=== PATIENT | female | born 1955 | race African-American/Black ===

== ENCOUNTER 2017-04-25 08:20 | Inpatient (IN) | payer MEDICARE, MEDICAID ==
[~2017-04-25] VITALS: Ht 177.8 cm; Wt 79.4 kg
[2017-04-25] MEDS ORDERED: ONDANSETRON HCL 4MG/2ML VIAL IV STA (09:00)
[2017-04-25] MEDS ORDERED: SODIUM CHLORIDE 0.9% 1,000 ML IV ONE (09:00)
[2017-04-25] MEDS ORDERED: MORPHINE SULFATE 4 MG/ML CPJ (NOT FOR IM USE) IV STA (09:00)
[2017-04-25] MEDS ORDERED: FAMOTIDINE 20MG/2ML VIAL IV STA (09:00)
[2017-04-25 09:45] LABS: HEMATOCRIT. 36.6 % (36.0-48.0); HEMOGLOBIN. 11.4 g/dL (12.0-16.0); MEAN CORPUSCULAR HEMOGLOBIN 25.1 pg (28.0-32.0); MEAN CORPUSCULAR VOLUME 80.4 fL (81.0-99.0); MEAN PLATELET VOLUME 8.5 fl (7.4-10.4); PLATELET 441 x1000/uL (130-400); RED BLOOD CELL COUNT 4.54 mill/uL (4.2-5.4); RED CELL DISTRIBUTION WIDTH 19.3 % (11.6-14.6)
[2017-04-25 09:51] LABS: PROTHROMBIN TIME 10.8 sec (9.4-11.6)
[2017-04-25 09:55] LABS: CARBON DIOXIDE 24 mEq/L (21-32); CHLORIDE 109 mEq/L (98-107)
[2017-04-25 10:01] LABS: TROPONIN I 0.02 ng/mL (0.00-0.04)
[2017-04-25 11:12] LABS: PLATELET ESTIMATE INCREASED
[2017-04-25] MEDS ORDERED: IOHEXOL-300 100 ML BOTTLE ONE (11:48)
[2017-04-25 13:24] LABS: CLARITY URINE CLEAR (CLEAR); COLOR URINE YELLOW (YELLOW); KETONES URINE 1+ (NEGATIVE); LEUKOCYTE ESTERASE URINE NEGATIVE (NEGATIVE); NITRITE URINE NEGATIVE (NEGATIVE); OCCULT BLOOD URINE 2+ (NEGATIVE); PH URINE 5.5 (4.5-8.0); PROTEIN URINE 3+ (NEGATIVE); SPECIFIC GRAVITY URINE 1.028 (1.005-1.030); UROBILINOGEN URINE 0.2 E.U./dL (0.2-1.0)
[2017-04-25] MEDS ORDERED: ONDANSETRON HCL 4MG/2ML VIAL IV ONE (13:45)
[2017-04-25] MEDS ORDERED: ENALAPRIL 0.625 MG in DEXTROSE 5% WATER 49.5 ML IV ONE (13:45)
[2017-04-25] MEDS ORDERED: ENALAPRIL 2.5MG/2ML VIAL 2ML IV NR (14:15)
[2017-04-25] MEDS ORDERED: ENALAPRIL 2.5MG/2ML VIAL 2ML IV ONE (14:15)
[2017-04-25] MEDS ORDERED: SODIUM CHLORIDE 0.45% 1,000 ML IV SCH (15:44)
[2017-04-25] MEDS ORDERED: CLONIDINE 0.1MG TABLET PO PRN (15:45)
[2017-04-25] MEDS ORDERED: MORPHINE SULFATE 2 MG/ML CPJ (NOT FOR IM USE) IV PRN (15:45)
[2017-04-25] MEDS ORDERED: ONDANSETRON HCL 4MG/2ML VIAL IV PRN (15:45)
[2017-04-25 16:00] VITALS: BP 178/84
[2017-04-25] MEDS ORDERED: ENAL5TAB PO (16:40)
[2017-04-25] MEDS ORDERED: METF10002 PO (16:40)
[2017-04-25 16:43] VITALS: BP 178/84
[2017-04-25] MEDS ORDERED: AMLO10TA80 PO (16:43)
[2017-04-25] MEDS ORDERED: DEXTROSE 50% WATER 50ML SYRINGE IV PRN (18:15)
[2017-04-25] MEDS: BLOOD SUGAR DIAGNOSTIC STRIP TEST SCH ×2 (18:36→21:44)
[2017-04-25] MEDS ORDERED: LEVO25TA7 PO (18:54)
[2017-04-25] MEDS ORDERED: TOFA5TAB PO (18:54)
[2017-04-25] MEDS ORDERED: INSU100I19 SQ (18:57)
[2017-04-25] MEDS: INSULIN LISPRO 100 UNITS/ML SUBCUT SCH ×2 (19:00→22:38)
[2017-04-25 20:00] VITALS: BP 131/72
[2017-04-25] MEDS ORDERED: INFLUENZA VIRUS VACCINE 0.5ML SYR IM ONE (21:45)
[2017-04-26] VITALS: BP 127/70
[2017-04-26 04:00] VITALS: BP 113/63
[2017-04-26] MEDS: BLOOD SUGAR DIAGNOSTIC STRIP TEST SCH ×2 (06:40→11:45)
[2017-04-26] MEDS: INSULIN LISPRO 100 UNITS/ML SUBCUT SCH (07:01)
[2017-04-26 08:00] VITALS: BP 129/62
[2017-04-26 09:14] LABS: BASOPHILS % 0.5 % (0.0-2.0); EOSINOPHILS % 4.8 % (0.0-5.0); LYMPHOCYTES % 24.8 % (20.0-50.0); MEAN CORPUSCULAR VOLUME 80.2 fL (81.0-99.0); MEAN PLATELET VOLUME 8.8 fl (7.4-10.4); MONOCYTES % 10.3 % (2.0-8.0); NEUTROPHILS % 59.6 % (40.0-76.0); PLATELET 364 x1000/uL (130-400); RED BLOOD CELL COUNT 3.87 mill/uL (4.2-5.4); RED CELL DISTRIBUTION WIDTH 19.4 % (11.6-14.6)
[2017-04-26 09:49] LABS: CARBON DIOXIDE 22 mEq/L (21-32); CHLORIDE 112 mEq/L (98-107)
[2017-04-26 11:55] VITALS: BP 129/62
[2017-04-26 12:00] VITALS: BP 149/83
== END 2017-04-26 12:45 | disposition home or self-care (01) | DRG 866 ==
LOC: ER 08:26 → CANBEDREQ 12:13 → 5WST 13:42 → ENRESERV 14:10 → SUPCPDRO 15:38
PROVIDERS: ADMIT Hospitalist; ATTEND Hospitalist
DX: B34.9 Viral infection, unspecified (principal); E11.9 Type 2 diabetes mellitus without complications; R10.30 Lower abdominal pain, unspecified; E78.00 Pure hypercholesterolemia, unspecified; E78.5 Hyperlipidemia, unspecified; F17.200 Nicotine dependence, unspecified, uncomplicated; I10 Essential (primary) hypertension; M06.9 Rheumatoid arthritis, unspecified; R11.2 Nausea with vomiting, unspecified; Z87.01 Personal history of pneumonia (recurrent); Z71.6 Tobacco abuse counseling
CPT/HCPCS: 36415; 71010; 74177; 76705; 80053; 81001; 82962; 83605; 83690; 83880; 84484; 85025; 85610; 87040; 87086; 93005; 93970; 96374; 96375; 99285; J1815; J2270; J2405; J3490; J7030; J7060; Q9967

== ENCOUNTER 2018-04-30 19:44 | Emergency (ER) | payer MEDICARE, MEDICAID ==
[~2018-04-30] VITALS: Ht 170.2 cm; Wt 77.0 kg
[~2018-04-30 19:44] MED LIST: AMLO10TA80 PO; ENAL5TAB PO; INSU100I19 SQ; LEVO25TA7 PO; METF-416 PO; TOFA5TAB PO
[2018-04-30] MEDS: SODIUM CHLORIDE 0.9% 1,000 ML IV ONE (22:40)
[2018-04-30] MEDS: ONDANSETRON HCL 4MG/2ML INJ IV ONE (22:43)
[2018-04-30 23:31] LABS: BASOPHILS % 0.7 % (0.0-2.0); EOSINOPHILS % 1.6 % (0.0-5.0); HEMATOCRIT. 34.5 % (36.0-48.0); LYMPHOCYTES % 23.3 % (20.0-50.0); MEAN CORPUSCULAR HEMOGLOBIN 25.4 pg (28.0-32.0); MONOCYTES % 9.9 % (2.0-8.0); NEUTROPHILS % 64.5 % (40.0-76.0); RED BLOOD CELL COUNT 4.32 mill/uL (4.2-5.4); RED CELL DISTRIBUTION WIDTH 20.1 % (11.6-14.6)
[2018-04-30 23:41] LABS: CHLORIDE 108 mEq/L (98-107)
[2018-05-01 00:15] LABS: MEAN PLATELET VOLUME 9.1 fl (7.4-10.4); PLATELET 339 x1000/uL (130-400)
[2018-05-01 01:01] LABS: CLARITY URINE CLOUDY (CLEAR); COLOR URINE YELLOW (YELLOW); KETONES URINE TRACE (NEGATIVE); LEUKOCYTE ESTERASE URINE NEGATIVE (NEGATIVE); NITRITE URINE NEGATIVE (NEGATIVE); OCCULT BLOOD URINE 1+ (NEGATIVE); PROTEIN URINE 3+ (NEGATIVE); SPECIFIC GRAVITY URINE 1.013 (1.005-1.030); UROBILINOGEN URINE 0.2 E.U./dL (0.2-1.0)
[2018-05-01 03:00] VITALS: BP 140/77
== END 2018-05-01 03:02 | disposition home or self-care (01) ==
LOC: ER 19:44
DX: N39.0 Urinary tract infection, site not specified (principal); K29.70 Gastritis, unspecified, without bleeding; R11.10 Vomiting, unspecified; R42 Dizziness and giddiness; I10 Essential (primary) hypertension; E05.90 Thyrotoxicosis, unspecified without thyrotoxic crisis or storm; F17.200 Nicotine dependence, unspecified, uncomplicated; Z79.899 Other long term (current) drug therapy; Z79.4 Long term (current) use of insulin
CPT/HCPCS: 36415; 74176; 80053; 81003; 83690; 85025; 93005; 96361; 96374; 99284; J2405; J7030

== ENCOUNTER 2018-10-17 23:30 | Inpatient (IN) | payer MEDICARE, MEDICAID ==
[~2018-10-17] VITALS: Ht 177.8 cm; Wt 73.5 kg
[2018-10-17 23:00] VITALS: BP 159/80
[2018-10-18] VITALS: BP 159/80
[2018-10-18] MEDS ORDERED: MAGNESIUM/ALUMINUM HYDROXIDE/SIMETHICONE 30ML UDC PO PRN (00:30)
[2018-10-18] MEDS ORDERED: DEXTROSE 50% WATER 50ML SYRINGE IV PRN (00:30)
[2018-10-18] MEDS ORDERED: CLONIDINE 0.1MG TABLET PO PRN (00:30)
[2018-10-18] MEDS ORDERED: ONDANSETRON HCL 4MG/2ML INJ IV PRN (00:30)
[2018-10-18] MEDS ORDERED: GUAIFENESIN 200MG/10ML SUGAR FREE UDC PO PRN (00:30)
[2018-10-18] MEDS ORDERED: DOCUSATE SODIUM 100MG CAPSULE PO PRN (00:30)
[2018-10-18] MEDS ORDERED: IPRATROPIUM/ALBUTEROL 0.5-3(2.5)MG/3ML NEB HHN PRN (00:30)
[2018-10-18] MEDS: BLOOD SUGAR DIAGNOSTIC STRIP TEST SCH ×4 (06:18→20:29)
[2018-10-18] MEDS: INSULIN LISPRO 100 UNITS/ML SUBCUT SCH ×4 (07:13→21:17)
[2018-10-18] MEDS: HYDROCODONE/ACETAMINOPHEN 10/325MG TABLET PO PRN ×2 (07:47→13:51)
[2018-10-18 08:26] VITALS: BP 156/77
[2018-10-18] MEDS: METOPROLOL TARTRATE 25MG TABLET PO SCH ×2 (08:27→20:29)
[2018-10-18] MEDS: LOSARTAN POTASSIUM 50 MG TABLET PO SCH ×2 (08:27→20:29)
[2018-10-18] MEDS: ENOXAPARIN 40MG/0.4ML SYR SUBCUT SCH (08:28)
[2018-10-18] MEDS ORDERED: AMLODIPINE 5MG TABLET PO SCH (09:00)
[2018-10-18] MEDS ORDERED: INSULIN LISPRO 100 UNITS/ML SUBCUT SCH (09:00)
[2018-10-18] MEDS: NIFEDIPINE XL 60MG TAB PO SCH (11:50)
[2018-10-18 20:00] VITALS: BP 151/70
[2018-10-19] MEDS: HYDROCODONE/ACETAMINOPHEN 10/325MG TABLET PO PRN ×3 (02:21→20:11)
[2018-10-19] MEDS: BLOOD SUGAR DIAGNOSTIC STRIP TEST SCH ×4 (05:42→21:17)
[2018-10-19] MEDS: ACETAMINOPHEN 325MG TABLET PO PRN (06:06)
[2018-10-19] MEDS: INSULIN LISPRO 100 UNITS/ML SUBCUT SCH ×4 (06:07→21:31)
[2018-10-19 06:47] LABS: EOSINOPHILS % 2.2 % (0.0-5.0); HEMATOCRIT. 24.2 % (36.0-48.0); HEMOGLOBIN. 7.7 g/dL (12.0-16.0); LYMPHOCYTES % 25.1 % (20.0-50.0); MEAN CORPUSCULAR HEMOGLOBIN 25.6 pg (28.0-32.0); MEAN CORPUSCULAR VOLUME 80.5 fL (81.0-99.0); MEAN PLATELET VOLUME 8.2 fl (7.4-10.4); MONOCYTES % 13.6 % (2.0-8.0); NEUTROPHILS % 58.1 % (40.0-76.0); PLATELET 493 x1000/uL (130-400); RED BLOOD CELL COUNT 3.01 mill/uL (4.2-5.4); RED CELL DISTRIBUTION WIDTH 19.6 % (11.6-14.6)
[2018-10-19 06:50] LABS: CHLORIDE 105 mEq/L (98-107)
[2018-10-19 06:58] LABS: VITAMIN B12 SERUM 617 pg/mL (211-911)
[2018-10-19 08:32] VITALS: BP 140/80
[2018-10-19] MEDS: LOSARTAN POTASSIUM 50 MG TABLET PO SCH ×2 (09:23→21:17)
[2018-10-19] MEDS: ENOXAPARIN 40MG/0.4ML SYR SUBCUT SCH (09:23)
[2018-10-19] MEDS: NIFEDIPINE XL 60MG TAB PO SCH (09:24)
[2018-10-19] MEDS: METOPROLOL TARTRATE 25MG TABLET PO SCH ×2 (09:24→21:17)
[2018-10-19] MEDS: TRAMADOL 50MG TABLET PO PRN ×2 (11:01→22:38)
[2018-10-19] MEDS: NA PHOS,M-B/NA PHOS,DI-BA ENEMA 118ML PR PRN (12:53)
[2018-10-19] MEDS: BISACODYL 5MG TABLET PO PRN (14:35)
[2018-10-19] MEDS: DOCUSATE SODIUM 100MG CAPSULE PO SCH ×2 (14:35→17:11)
[2018-10-19 20:00] VITALS: BP 145/68
[2018-10-20] MEDS: BLOOD SUGAR DIAGNOSTIC STRIP TEST SCH ×4 (06:07→21:00)
[2018-10-20] MEDS: INSULIN LISPRO 100 UNITS/ML SUBCUT SCH ×4 (06:50→23:15)
[2018-10-20 06:52] LABS: BASOPHILS % 0.5 % (0.0-2.0); EOSINOPHILS % 2.4 % (0.0-5.0); HEMATOCRIT. 23.9 % (36.0-48.0); HEMOGLOBIN. 7.8 g/dL (12.0-16.0); LYMPHOCYTES % 25.6 % (20.0-50.0); MONOCYTES % 14.4 % (2.0-8.0); NEUTROPHILS % 57.1 % (40.0-76.0); PLATELET 507 x1000/uL (130-400); RED BLOOD CELL COUNT 2.98 mill/uL (4.2-5.4); RED CELL DISTRIBUTION WIDTH 19.1 % (11.6-14.6)
[2018-10-20 07:36] LABS: CHLORIDE 103 mEq/L (98-107)
[2018-10-20 08:00] VITALS: BP 131/68
[2018-10-20] MEDS: LOSARTAN POTASSIUM 50 MG TABLET PO SCH ×2 (08:41→23:07)
[2018-10-20] MEDS: ENOXAPARIN 40MG/0.4ML SYR SUBCUT SCH (08:41)
[2018-10-20] MEDS: TRAMADOL 50MG TABLET PO PRN ×2 (08:44→16:09)
[2018-10-20] MEDS: NIFEDIPINE XL 60MG TAB PO SCH (08:44)
[2018-10-20] MEDS: METOPROLOL TARTRATE 25MG TABLET PO SCH ×2 (08:45→23:07)
[2018-10-20] MEDS: DOCUSATE SODIUM 100MG CAPSULE PO SCH ×2 (08:45→16:08)
[2018-10-20] MEDS: HYDROCODONE/ACETAMINOPHEN 10/325MG TABLET PO PRN (12:37)
[2018-10-20 20:00] VITALS: BP 150/68
[2018-10-21] MEDS: HYDROCODONE/ACETAMINOPHEN 10/325MG TABLET PO PRN ×3 (05:33→16:54)
[2018-10-21] MEDS: BLOOD SUGAR DIAGNOSTIC STRIP TEST SCH ×4 (06:33→21:00)
[2018-10-21] MEDS: INSULIN LISPRO 100 UNITS/ML SUBCUT SCH ×4 (06:44→22:06)
[2018-10-21 08:39] VITALS: BP 157/78
[2018-10-21] MEDS: BISACODYL 5MG TABLET PO PRN (08:56)
[2018-10-21] MEDS: ENOXAPARIN 40MG/0.4ML SYR SUBCUT SCH (08:56)
[2018-10-21] MEDS: NIFEDIPINE XL 60MG TAB PO SCH (08:56)
[2018-10-21] MEDS: DOCUSATE SODIUM 100MG CAPSULE PO SCH ×2 (08:56→16:25)
[2018-10-21] MEDS: LOSARTAN POTASSIUM 50 MG TABLET PO SCH ×2 (08:57→22:05)
[2018-10-21] MEDS: METOPROLOL TARTRATE 25MG TABLET PO SCH ×2 (08:57→22:05)
[2018-10-21] MEDS: TRAMADOL 50MG TABLET PO PRN ×2 (08:57→14:36)
[2018-10-21] MEDS: LACTULOSE 20G/30ML UDC PO PRN (18:05)
[2018-10-21] MEDS: DIPHENHYDRAMINE 50MG/ML VIAL IV PRN (19:22)
[2018-10-21 20:00] VITALS: BP 192/88
[2018-10-21] MEDS ORDERED: LACTULOSE 20G/30ML UDC PO SCH (21:00)
[2018-10-22] VITALS: BP 142/76
[2018-10-22] MEDS: NA PHOS,M-B/NA PHOS,DI-BA ENEMA 118ML PR PRN (01:41)
[2018-10-22] MEDS: HYDROCODONE/ACETAMINOPHEN 10/325MG TABLET PO PRN ×3 (02:26→18:09)
[2018-10-22] MEDS: BLOOD SUGAR DIAGNOSTIC STRIP TEST SCH ×4 (06:09→21:00)
[2018-10-22] MEDS: INSULIN LISPRO 100 UNITS/ML SUBCUT SCH ×4 (06:11→21:46)
[2018-10-22 08:04] VITALS: BP 128/64
[2018-10-22] MEDS: NIFEDIPINE XL 60MG TAB PO SCH (08:35)
[2018-10-22] MEDS: METOPROLOL TARTRATE 25MG TABLET PO SCH ×2 (08:36→22:20)
[2018-10-22] MEDS: DOCUSATE SODIUM 100MG CAPSULE PO SCH ×2 (08:36→18:08)
[2018-10-22] MEDS: TRAMADOL 50MG TABLET PO PRN ×2 (08:36→21:48)
[2018-10-22] MEDS: LOSARTAN POTASSIUM 50 MG TABLET PO SCH ×2 (08:36→21:44)
[2018-10-22] MEDS: ENOXAPARIN 40MG/0.4ML SYR SUBCUT SCH (08:37)
[2018-10-22 20:00] VITALS: BP 140/74
[2018-10-23] MEDS: TRAMADOL 50MG TABLET PO PRN ×2 (04:29→09:57)
[2018-10-23] MEDS: INSULIN LISPRO 100 UNITS/ML SUBCUT SCH ×4 (06:24→21:18)
[2018-10-23] MEDS: BLOOD SUGAR DIAGNOSTIC STRIP TEST SCH ×4 (06:25→21:18)
[2018-10-23 07:50] VITALS: BP 139/72
[2018-10-23 08:00] VITALS: BP 139/72
[2018-10-23] MEDS: DOCUSATE SODIUM 100MG CAPSULE PO SCH ×2 (08:29→17:36)
[2018-10-23] MEDS: METOPROLOL TARTRATE 25MG TABLET PO SCH ×2 (08:29→21:14)
[2018-10-23] MEDS: NIFEDIPINE XL 60MG TAB PO SCH (08:29)
[2018-10-23] MEDS: ENOXAPARIN 40MG/0.4ML SYR SUBCUT SCH (08:29)
[2018-10-23] MEDS: LOSARTAN POTASSIUM 50 MG TABLET PO SCH ×2 (08:29→21:13)
[2018-10-23] MEDS: HYDROCODONE/ACETAMINOPHEN 10/325MG TABLET PO PRN (14:56)
[2018-10-23 15:03] VITALS: BP 158/82
[2018-10-23 20:00] VITALS: BP 131/97
[2018-10-24] MEDS: INSULIN LISPRO 100 UNITS/ML SUBCUT SCH ×4 (06:05→21:12)
[2018-10-24] MEDS: BLOOD SUGAR DIAGNOSTIC STRIP TEST SCH ×4 (06:05→20:55)
[2018-10-24 06:53] LABS: EOSINOPHILS % 2.4 % (0.0-5.0); HEMATOCRIT. 24.7 % (36.0-48.0); HEMOGLOBIN. 7.7 g/dL (12.0-16.0); LYMPHOCYTES % 27.8 % (20.0-50.0); MEAN CORPUSCULAR HEMOGLOBIN 25.1 pg (28.0-32.0); MEAN CORPUSCULAR VOLUME 80.1 fL (81.0-99.0); MEAN PLATELET VOLUME 8.1 fl (7.4-10.4); MONOCYTES % 10.9 % (2.0-8.0); NEUTROPHILS % 57.9 % (40.0-76.0); PLATELET 707 x1000/uL (130-400); RED BLOOD CELL COUNT 3.08 mill/uL (4.2-5.4); RED CELL DISTRIBUTION WIDTH 19.1 % (11.6-14.6)
[2018-10-24 08:00] VITALS: BP 152/77
[2018-10-24] MEDS: DOCUSATE SODIUM 100MG CAPSULE PO SCH ×2 (08:03→16:57)
[2018-10-24] MEDS: NIFEDIPINE XL 60MG TAB PO SCH ×2 (08:04→22:01)
[2018-10-24] MEDS: METOPROLOL TARTRATE 25MG TABLET PO SCH ×2 (08:04→20:54)
[2018-10-24] MEDS: ENOXAPARIN 40MG/0.4ML SYR SUBCUT SCH (08:05)
[2018-10-24] MEDS: TRAMADOL 50MG TABLET PO PRN ×2 (08:05→18:04)
[2018-10-24] MEDS: LOSARTAN POTASSIUM 50 MG TABLET PO SCH ×2 (08:05→20:55)
[2018-10-24] MEDS: HYDROCODONE/ACETAMINOPHEN 10/325MG TABLET PO PRN ×2 (09:48→15:11)
[2018-10-24] MEDS ORDERED: TRAMADOL 50MG TABLET PO PRN (10:50)
[2018-10-24] MEDS: LIDOCAINE 5% PATCH TOP SCH (17:48)
[2018-10-24 20:00] VITALS: BP 162/75
[2018-10-24] MEDS: ACETAMINOPHEN 325MG TABLET PO PRN (20:54)
[2018-10-24] MEDS: DULOXETINE HCL 30MG DR CAPSULE PO SCH (20:55)
[2018-10-25] MEDS: TRAMADOL 50MG TABLET PO PRN ×3 (00:02→18:47)
[2018-10-25 06:16] LABS: CHLORIDE 102 mEq/L (98-107)
[2018-10-25 06:32] LABS: EOSINOPHILS % 3.2 % (0.0-5.0); HEMATOCRIT. 23.3 % (36.0-48.0); HEMOGLOBIN. 7.4 g/dL (12.0-16.0); LYMPHOCYTES % 27.1 % (20.0-50.0); MEAN CORPUSCULAR HEMOGLOBIN 25.7 pg (28.0-32.0); MEAN CORPUSCULAR VOLUME 80.5 fL (81.0-99.0); MONOCYTES % 10.6 % (2.0-8.0); NEUTROPHILS % 58.1 % (40.0-76.0); PLATELET 739 x1000/uL (130-400)
[2018-10-25] MEDS: BLOOD SUGAR DIAGNOSTIC STRIP TEST SCH ×4 (06:43→21:08)
[2018-10-25] MEDS: INSULIN LISPRO 100 UNITS/ML SUBCUT SCH ×4 (06:49→21:00)
[2018-10-25] MEDS: LIDOCAINE 5% PATCH TOP SCH (08:28)
[2018-10-25] MEDS: ENOXAPARIN 40MG/0.4ML SYR SUBCUT SCH (08:28)
[2018-10-25] MEDS: NIFEDIPINE XL 60MG TAB PO SCH ×2 (08:29→21:07)
[2018-10-25] MEDS: LOSARTAN POTASSIUM 50 MG TABLET PO SCH ×2 (08:29→21:06)
[2018-10-25] MEDS: DULOXETINE HCL 30MG DR CAPSULE PO SCH (08:29)
[2018-10-25] MEDS: BISACODYL 5MG TABLET PO PRN (08:29)
[2018-10-25] MEDS: DOCUSATE SODIUM 100MG CAPSULE PO SCH ×2 (08:29→16:40)
[2018-10-25] MEDS: METOPROLOL TARTRATE 25MG TABLET PO SCH ×2 (08:30→21:07)
[2018-10-25 08:31] VITALS: BP 134/67
[2018-10-25] MEDS: HYDROCODONE/ACETAMINOPHEN 10/325MG TABLET PO PRN ×2 (09:51→15:12)
[2018-10-25 20:00] VITALS: BP 141/73
[2018-10-25] MEDS: LACTULOSE 20G/30ML UDC PO PRN (21:19)
[2018-10-26] MEDS: HYDROCODONE/ACETAMINOPHEN 10/325MG TABLET PO PRN ×3 (03:15→20:41)
[2018-10-26] MEDS: BLOOD SUGAR DIAGNOSTIC STRIP TEST SCH ×4 (06:14→20:41)
[2018-10-26] MEDS: INSULIN LISPRO 100 UNITS/ML SUBCUT SCH ×4 (06:15→20:44)
[2018-10-26] MEDS: TRAMADOL 50MG TABLET PO PRN ×2 (06:30→15:45)
[2018-10-26 08:08] VITALS: BP 160/71
[2018-10-26] MEDS: LIDOCAINE 5% PATCH TOP SCH (08:10)
[2018-10-26] MEDS: NIFEDIPINE XL 60MG TAB PO SCH ×2 (08:11→20:41)
[2018-10-26] MEDS: METOPROLOL TARTRATE 25MG TABLET PO SCH ×2 (08:11→20:41)
[2018-10-26] MEDS: DOCUSATE SODIUM 100MG CAPSULE PO SCH ×2 (08:12→17:00)
[2018-10-26] MEDS: ENOXAPARIN 40MG/0.4ML SYR SUBCUT SCH (08:12)
[2018-10-26] MEDS: DULOXETINE HCL 30MG DR CAPSULE PO SCH (08:12)
[2018-10-26] MEDS: LOSARTAN POTASSIUM 50 MG TABLET PO SCH ×2 (08:12→20:41)
[2018-10-26 20:00] VITALS: BP 155/84
[2018-10-27] MEDS: HYDROCODONE/ACETAMINOPHEN 10/325MG TABLET PO PRN ×3 (03:47→19:42)
[2018-10-27] MEDS: BLOOD SUGAR DIAGNOSTIC STRIP TEST SCH ×4 (05:37→20:07)
[2018-10-27] MEDS: INSULIN LISPRO 100 UNITS/ML SUBCUT SCH ×4 (05:38→21:55)
[2018-10-27 08:07] VITALS: BP 173/80
[2018-10-27] MEDS: METOPROLOL TARTRATE 25MG TABLET PO SCH ×2 (08:51→20:07)
[2018-10-27] MEDS: NIFEDIPINE XL 60MG TAB PO SCH ×2 (08:51→20:06)
[2018-10-27] MEDS: DULOXETINE HCL 30MG DR CAPSULE PO SCH (08:51)
[2018-10-27] MEDS: LOSARTAN POTASSIUM 50 MG TABLET PO SCH ×2 (08:51→20:07)
[2018-10-27] MEDS: DOCUSATE SODIUM 100MG CAPSULE PO SCH ×2 (08:51→16:31)
[2018-10-27] MEDS: ENOXAPARIN 40MG/0.4ML SYR SUBCUT SCH (08:51)
[2018-10-27] MEDS: LIDOCAINE 5% PATCH TOP SCH (08:52)
[2018-10-27] MEDS: ASCORBIC ACID 500 MG TABLET PO SCH (09:00)
[2018-10-27] MEDS: ZINC SULFATE 220 MG ( 50 ) CAPSULE PO SCH (10:01)
[2018-10-27 10:04] VITALS: BP 144/69
[2018-10-27 16:19] LABS: HEMATOCRIT 27.1 % (36.0-48.0); HEMOGLOBIN 8.5 g/dL (12.0-16.0); MEAN CORPUSCULAR HEMOGLOBIN 25.5 pg (28.0-32.0); MEAN CORPUSCULAR VOLUME 81.1 fL (81.0-99.0); PLATELET 828 x1000/uL (130-400); RED BLOOD CELL COUNT 3.34 mill/uL (4.2-5.4); RED CELL DISTRIBUTION WIDTH 19.7 % (11.6-14.6)
[2018-10-27 20:00] VITALS: BP 148/73
[2018-10-27] MEDS ORDERED: SODIUM POLYSTYRENE SULFONATE 15 G/60 ML BOT PO NR (21:30)
[2018-10-27] MEDS: TRAMADOL 50MG TABLET PO PRN (23:36)
[2018-10-28] MEDS: BLOOD SUGAR DIAGNOSTIC STRIP TEST SCH ×4 (05:35→21:21)
[2018-10-28 05:37] LABS: BASOPHILS % 1.1 % (0.0-2.0); EOSINOPHILS % 3.6 % (0.0-5.0); HEMATOCRIT. 24.9 % (36.0-48.0); HEMOGLOBIN. 8.2 g/dL (12.0-16.0); LYMPHOCYTES % 31.4 % (20.0-50.0); MEAN CORPUSCULAR HEMOGLOBIN 26.4 pg (28.0-32.0); MEAN CORPUSCULAR VOLUME 80.5 fL (81.0-99.0); MEAN PLATELET VOLUME 7.7 fl (7.4-10.4); MONOCYTES % 10.8 % (2.0-8.0); NEUTROPHILS % 53.1 % (40.0-76.0); PLATELET 807 x1000/uL (130-400); RED BLOOD CELL COUNT 3.09 mill/uL (4.2-5.4); RED CELL DISTRIBUTION WIDTH 19.8 % (11.6-14.6)
[2018-10-28 05:50] LABS: PHOSPHORUS 3.5 mg/dL (2.5-4.9)
[2018-10-28 06:28] LABS: CLARITY URINE CLEAR (CLEAR); COLOR URINE YELLOW (YELLOW); KETONES URINE TRACE (NEGATIVE); LEUKOCYTE ESTERASE URINE NEGATIVE (NEGATIVE); NITRITE URINE NEGATIVE (NEGATIVE); OCCULT BLOOD URINE NEGATIVE (NEGATIVE); PROTEIN URINE 2+ (NEGATIVE); SPECIFIC GRAVITY URINE 1.018 (1.005-1.030)
[2018-10-28] MEDS: INSULIN LISPRO 100 UNITS/ML SUBCUT SCH ×4 (06:33→21:19)
[2018-10-28 07:53] VITALS: BP 131/70
[2018-10-28 07:58] VITALS: BP 131/70
[2018-10-28 08:00] LABS: FOLIC ACID (FOLATE) SERUM 10.1 ng/mL (>5.38)
[2018-10-28] MEDS: DOCUSATE SODIUM 100MG CAPSULE PO SCH ×2 (08:24→16:16)
[2018-10-28] MEDS: LOSARTAN POTASSIUM 50 MG TABLET PO SCH ×2 (08:24→22:45)
[2018-10-28] MEDS: ZINC SULFATE 220 MG ( 50 ) CAPSULE PO SCH (08:24)
[2018-10-28] MEDS: ASCORBIC ACID 500 MG TABLET PO SCH (08:24)
[2018-10-28] MEDS: NIFEDIPINE XL 60MG TAB PO SCH (08:24)
[2018-10-28] MEDS: METOPROLOL TARTRATE 25MG TABLET PO SCH ×2 (08:25→21:18)
[2018-10-28] MEDS: ENOXAPARIN 40MG/0.4ML SYR SUBCUT SCH (08:25)
[2018-10-28] MEDS: DULOXETINE HCL 30MG DR CAPSULE PO SCH (08:26)
[2018-10-28] MEDS: LIDOCAINE 5% PATCH TOP SCH (08:26)
[2018-10-28] MEDS: TRAMADOL 50MG TABLET PO PRN ×2 (10:01→21:20)
[2018-10-28] MEDS: BISACODYL 5MG TABLET PO PRN (16:24)
[2018-10-28 20:00] VITALS: BP 123/72
[2018-10-28] MEDS: LEVOTHYROXINE SODIUM 25MCG TABLET PO SCH (22:45)
[2018-10-29] MEDS: NIFEDIPINE XL 60MG TAB PO SCH ×3 (00:15→22:54)
[2018-10-29 01:00] VITALS: BP 132/70
[2018-10-29] MEDS: BLOOD SUGAR DIAGNOSTIC STRIP TEST SCH ×4 (06:11→21:15)
[2018-10-29] MEDS: INSULIN LISPRO (LOW DOSE) 100 UNITS/ML SUBCUT SCH ×3 (06:23→16:52)
[2018-10-29] MEDS: INSULIN LISPRO 100 UNITS/ML SUBCUT SCH ×3 (06:24→16:52)
[2018-10-29] MEDS: TRAMADOL 50MG TABLET PO PRN (06:26)
[2018-10-29] MEDS: LEVOTHYROXINE SODIUM 25MCG TABLET PO SCH (06:29)
[2018-10-29] MEDS ORDERED: INSULIN LISPRO 100 UNITS/ML SUBCUT SCH (07:00)
[2018-10-29 07:16] LABS: BASOPHILS % 1.3 % (0.0-2.0); EOSINOPHILS % 3.5 % (0.0-5.0); HEMATOCRIT. 26.5 % (36.0-48.0); HEMOGLOBIN. 8.3 g/dL (12.0-16.0); LYMPHOCYTES % 32.2 % (20.0-50.0); MEAN CORPUSCULAR HEMOGLOBIN 25.4 pg (28.0-32.0); MEAN CORPUSCULAR VOLUME 80.9 fL (81.0-99.0); MEAN PLATELET VOLUME 7.7 fl (7.4-10.4); MONOCYTES % 9.6 % (2.0-8.0); NEUTROPHILS % 53.4 % (40.0-76.0); PLATELET 785 x1000/uL (130-400); RED BLOOD CELL COUNT 3.28 mill/uL (4.2-5.4); RED CELL DISTRIBUTION WIDTH 20.4 % (11.6-14.6)
[2018-10-29 07:38] LABS: CHLORIDE 105 mEq/L (98-107)
[2018-10-29 07:46] VITALS: BP 130/63
[2018-10-29 07:48] LABS: T4 FREE 0.97 ng/dL (0.76-1.46)
[2018-10-29] MEDS: LIDOCAINE 5% PATCH TOP SCH (09:04)
[2018-10-29] MEDS: DULOXETINE HCL 30MG DR CAPSULE PO SCH (09:04)
[2018-10-29] MEDS: LOSARTAN POTASSIUM 50 MG TABLET PO SCH ×2 (09:04→21:14)
[2018-10-29] MEDS: ASCORBIC ACID 500 MG TABLET PO SCH (09:04)
[2018-10-29] MEDS: LACTULOSE 20G/30ML UDC PO PRN (09:04)
[2018-10-29] MEDS: DOCUSATE SODIUM 100MG CAPSULE PO SCH ×2 (09:04→16:49)
[2018-10-29] MEDS: ZINC SULFATE 220 MG ( 50 ) CAPSULE PO SCH (09:04)
[2018-10-29] MEDS: ENOXAPARIN 40MG/0.4ML SYR SUBCUT SCH (09:05)
[2018-10-29] MEDS: METOPROLOL TARTRATE 25MG TABLET PO SCH ×2 (09:05→21:14)
[2018-10-29] MEDS: ACETAMINOPHEN 325MG TABLET PO PRN (09:58)
[2018-10-29] MEDS: HYDROCODONE/ACETAMINOPHEN 10/325MG TABLET PO PRN (12:38)
[2018-10-29 20:00] VITALS: BP 138/79
[2018-10-29] MEDS: POLYETHYLENE GLYCOL 3350 (17GM) 1 DOSE PACK PO SCH (21:13)
[2018-10-29] MEDS: INSULIN GLARGINE UD 100 UNITS/ML SYR SUBCUT SCH (21:20)
[2018-10-30] MEDS: LEVOTHYROXINE SODIUM 25MCG TABLET PO SCH (05:51)
[2018-10-30] MEDS: BLOOD SUGAR DIAGNOSTIC STRIP TEST SCH ×4 (05:53→21:00)
[2018-10-30] MEDS: INSULIN LISPRO 100 UNITS/ML SUBCUT SCH ×3 (06:12→16:59)
[2018-10-30] MEDS: INSULIN LISPRO (LOW DOSE) 100 UNITS/ML SUBCUT SCH ×3 (06:14→17:00)
[2018-10-30] MEDS: TRAMADOL 50MG TABLET PO PRN ×3 (07:57→23:36)
[2018-10-30 08:00] VITALS: BP 132/64
[2018-10-30] MEDS: NA PHOS,M-B/NA PHOS,DI-BA ENEMA 118ML PR PRN (08:14)
[2018-10-30] MEDS: ASCORBIC ACID 500 MG TABLET PO SCH (09:15)
[2018-10-30] MEDS: DOCUSATE SODIUM 100MG CAPSULE PO SCH ×2 (09:15→16:55)
[2018-10-30] MEDS: DULOXETINE HCL 30MG DR CAPSULE PO SCH (09:16)
[2018-10-30] MEDS: METOPROLOL TARTRATE 25MG TABLET PO SCH ×2 (09:16→22:05)
[2018-10-30] MEDS: NIFEDIPINE XL 60MG TAB PO SCH ×2 (09:16→21:00)
[2018-10-30] MEDS: ZINC SULFATE 220 MG ( 50 ) CAPSULE PO SCH (09:16)
[2018-10-30] MEDS: LOSARTAN POTASSIUM 50 MG TABLET PO SCH ×2 (09:16→22:05)
[2018-10-30] MEDS: LIDOCAINE 5% PATCH TOP SCH (09:19)
[2018-10-30] MEDS: ENOXAPARIN 40MG/0.4ML SYR SUBCUT SCH (09:20)
[2018-10-30] MEDS: HYDROCODONE/ACETAMINOPHEN 10/325MG TABLET PO PRN (10:24)
[2018-10-30 20:22] VITALS: BP 125/76
[2018-10-30] MEDS: INSULIN GLARGINE UD 100 UNITS/ML SYR SUBCUT SCH (22:12)
[2018-10-30] MEDS: POLYETHYLENE GLYCOL 3350 (17GM) 1 DOSE PACK PO SCH (22:13)
[2018-10-31] MEDS: LEVOTHYROXINE SODIUM 25MCG TABLET PO SCH (05:50)
[2018-10-31] MEDS: INSULIN LISPRO (LOW DOSE) 100 UNITS/ML SUBCUT SCH ×3 (05:52→17:00)
[2018-10-31] MEDS: INSULIN LISPRO 100 UNITS/ML SUBCUT SCH ×3 (05:55→17:59)
[2018-10-31] MEDS: BLOOD SUGAR DIAGNOSTIC STRIP TEST SCH ×5 (05:55→22:28)
[2018-10-31 08:00] VITALS: BP 145/70
[2018-10-31] MEDS: NIFEDIPINE XL 60MG TAB PO SCH ×2 (08:48→22:12)
[2018-10-31] MEDS: ASCORBIC ACID 500 MG TABLET PO SCH (08:48)
[2018-10-31] MEDS: DOCUSATE SODIUM 100MG CAPSULE PO SCH ×2 (08:49→17:15)
[2018-10-31] MEDS: DULOXETINE HCL 30MG DR CAPSULE PO SCH (08:49)
[2018-10-31] MEDS: METOPROLOL TARTRATE 25MG TABLET PO SCH ×2 (08:49→22:13)
[2018-10-31] MEDS: DIPHENHYDRAMINE 50MG/ML VIAL IV PRN (08:49)
[2018-10-31] MEDS: ZINC SULFATE 220 MG ( 50 ) CAPSULE PO SCH (08:49)
[2018-10-31] MEDS: LOSARTAN POTASSIUM 50 MG TABLET PO SCH ×2 (08:49→22:12)
[2018-10-31] MEDS: TRAMADOL 50MG TABLET PO PRN (08:50)
[2018-10-31] MEDS: LIDOCAINE 5% PATCH TOP SCH (08:51)
[2018-10-31] MEDS: ENOXAPARIN 40MG/0.4ML SYR SUBCUT SCH (08:52)
[2018-10-31] MEDS: LEVOFLOXACIN 500MG TABLET PO SCH (11:22)
[2018-10-31] MEDS: HYDROCODONE/ACETAMINOPHEN 10/325MG TABLET PO PRN ×2 (14:29→22:23)
[2018-10-31 17:12] LABS: 25-HYDROXY VITAMIN D3 14 ng/mL (.)
[2018-10-31 20:00] VITALS: BP 141/65
[2018-10-31] MEDS ORDERED: ERGOCALCIFEROL 50000UNITS CAPSULE PO SCH (21:00)
[2018-10-31] MEDS: POLYETHYLENE GLYCOL 3350 (17GM) 1 DOSE PACK PO SCH (22:23)
[2018-10-31] MEDS: INSULIN GLARGINE UD 100 UNITS/ML SYR SUBCUT SCH (22:29)
[2018-11-01] MEDS: HYDROCODONE/ACETAMINOPHEN 10/325MG TABLET PO PRN (05:03)
[2018-11-01] MEDS: LEVOTHYROXINE SODIUM 25MCG TABLET PO SCH (07:09)
[2018-11-01] MEDS: INSULIN LISPRO 100 UNITS/ML SUBCUT SCH ×2 (07:16→13:15)
[2018-11-01] MEDS: INSULIN LISPRO (LOW DOSE) 100 UNITS/ML SUBCUT SCH ×2 (07:17→13:15)
[2018-11-01 07:56] VITALS: BP 149/73
[2018-11-01] MEDS: DOCUSATE SODIUM 100MG CAPSULE PO SCH (09:01)
[2018-11-01] MEDS: ZINC SULFATE 220 MG ( 50 ) CAPSULE PO SCH (09:02)
[2018-11-01] MEDS: LOSARTAN POTASSIUM 50 MG TABLET PO SCH (09:02)
[2018-11-01] MEDS: DULOXETINE HCL 30MG DR CAPSULE PO SCH (09:03)
[2018-11-01] MEDS: METOPROLOL TARTRATE 25MG TABLET PO SCH (09:03)
[2018-11-01] MEDS: NIFEDIPINE XL 60MG TAB PO SCH (09:03)
[2018-11-01] MEDS: ENOXAPARIN 40MG/0.4ML SYR SUBCUT SCH (09:05)
[2018-11-01] MEDS: LIDOCAINE 5% PATCH TOP SCH (09:07)
[2018-11-01] MEDS: ASCORBIC ACID 500 MG TABLET PO SCH (09:07)
[2018-11-01] MEDS: TRAMADOL 50MG TABLET PO PRN (11:13)
[2018-11-01] MEDS: LEVOFLOXACIN 500MG TABLET PO SCH (11:13)
[2018-11-01] MEDS: BLOOD SUGAR DIAGNOSTIC STRIP TEST SCH (11:19)
[2018-11-01 14:22] VITALS: BP 149/73
== END 2018-11-01 14:50 | disposition home health service (06) | DRG 964 ==
PROVIDERS: ADMIT Psychiatry & Neurology Neurology; ATTEND Internal Medicine
DX: S72.002A Fracture of unspecified part of neck of left femur, initial encounter for closed fracture (principal); S32.492A Other specified fracture of left acetabulum, initial encounter for closed fracture; E46 Unspecified protein-calorie malnutrition; N39.0 Urinary tract infection, site not specified; M06.9 Rheumatoid arthritis, unspecified; E11.51 Type 2 diabetes mellitus with diabetic peripheral angiopathy without gangrene; M62.81 Muscle weakness (generalized); D64.9 Anemia, unspecified; E78.5 Hyperlipidemia, unspecified; F41.9 Anxiety disorder, unspecified; K59.00 Constipation, unspecified; I11.9 Hypertensive heart disease without heart failure; E03.9 Hypothyroidism, unspecified; F17.210 Nicotine dependence, cigarettes, uncomplicated; W01.0XXA Fall on same level from slipping, tripping and stumbling without subsequent striking against object, initial encounter; E11.40 Type 2 diabetes mellitus with diabetic neuropathy, unspecified; E55.9 Vitamin D deficiency, unspecified; E78.00 Pure hypercholesterolemia, unspecified; S72.142A Displaced intertrochanteric fracture of left femur, initial encounter for closed fracture; L89.329 Pressure ulcer of left buttock, unspecified stage; R80.9 Proteinuria, unspecified; Z89.411 Acquired absence of right great toe; Z79.4 Long term (current) use of insulin; Z80.0 Family history of malignant neoplasm of digestive organs; Z83.3 Family history of diabetes mellitus; Z89.412 Acquired absence of left great toe; Y93.89 Activity, other specified; Y92.89 Other specified places as the place of occurrence of the external cause; Y99.8 Other external cause status; Z68.23 Body mass index [BMI] 23.0-23.9, adult
CPT/HCPCS: 36415; 71045; 73502; 74018; 80048; 80076; 82306; 82607; 82728; 82746; 82962; 83540; 83550; 83735; 84100; 84132; 84134; 84439; 84443; 84481; 85027; 87077; 87186; 92523; 93970; 97110; 97116; 97162; 97167; 97530; 97535; A6261; J1200; J1650; J1815; J2405

== ENCOUNTER 2023-03-26 13:03 | Emergency (ER) | payer MEDICARE, MEDICAID ==
[~2023-03-26] VITALS: Ht 177.8 cm; Wt 64.0 kg
[~2023-03-26 13:03] MED LIST changes: +ENAL-75 PO; -ENAL5TAB PO; -INSU100I19 SQ; +INSU100I20 SQ
[2023-03-26 13:06] VITALS: O2SAT 100
[2023-03-26] MEDS ORDERED: ACETAMINOPHEN 325MG TABLET PO ONE (13:45)
[2023-03-26 14:35] LABS: BASOPHILS % 0.7 % (0.0-2.0); DIFFERENTIAL COMMENT 0; EOSINOPHILS % 2.9 % (0.0-5.0); HEMATOCRIT. 32.9 % (36.0-48.0); HEMOGLOBIN. 10.5 g/dL (12.0-16.0); LYMPHOCYTES % 32.4 % (20.0-50.0); MEAN CORPUSCULAR HEMOGLOBIN 26.3 pg (28.0-32.0); MEAN CORPUSCULAR HGB CONC 31.9 g/dL (31.0-37.0); MEAN CORPUSCULAR VOLUME 82.6 fL (81.0-99.0); MEAN PLATELET VOLUME 9.3 fl (7.4-10.4); MONOCYTES % 10.2 % (2.0-8.0); NEUTROPHILS % 53.8 % (40.0-76.0); PLATELET 323 x1000/uL (130-400); RED BLOOD CELL COUNT 3.99 mill/uL (4.2-5.4); RED CELL DISTRIBUTION WIDTH 18.9 % (11.6-14.6); WHITE BLOOD COUNT 9.4 x1000/uL (4.5-11.0)
[2023-03-26 14:41] LABS: PARTIAL THROMBOPLASTIN TIME 25.1 sec (23.4-31.0); PROTHROMBIN TIME 10.3 sec (9.6-11.0)
[2023-03-26 14:44] LABS: ALANINE AMINOTRANSFERASE 10 IU/L (10-49); ALBUMIN 4.2 g/dL (3.2-4.8); ASPARTATE AMINOTRANSFERASE 19 IU/L (<34); BILIRUBIN TOTAL 0.2 mg/dL (0.1-1.0); CALCIUM 9.8 mg/dL (8.7-10.4); CARBON DIOXIDE 22 mEq/L (21-32); CHLORIDE 108 mEq/L (98-107); CREATININE 1.1 mg/dL (0.6-1.0); GLUCOSE 217 mg/dL (70-105); POTASSIUM 5.2 mEq/L (3.5-5.1); PROTEIN TOTAL 6.9 g/dL (6.0-8.3); SODIUM 139 mEq/L (136-145); UREA NITROGEN BLOOD 25 mg/dL (9-23)
[2023-03-26 14:54] LABS: CLARITY URINE CLEAR (CLEAR); COLOR URINE YELLOW (YELLOW); GLUCOSE URINE TRACE (NEGATIVE); KETONES URINE NEGATIVE (NEGATIVE); LEUKOCYTE ESTERASE URINE NEGATIVE (NEGATIVE); NITRITE URINE NEGATIVE (NEGATIVE); OCCULT BLOOD URINE NEGATIVE (NEGATIVE); PROTEIN URINE NEGATIVE (NEGATIVE); SPECIFIC GRAVITY URINE 1.012 (1.005-1.030); UROBILINOGEN URINE 0.2 E.U./dL (0.2-1.0)
[2023-03-26 14:57] LABS: RBC URINE 0-2 /hpf (0-2); WBC URINE NONE SEEN /hpf (0-2); YEAST URINE NONE SEEN
[2023-03-26 15:26] LABS: SQUAMOUS EPITHELIAL CELL URINE 1+ /lpf (RARE/1+)
[2023-03-26 15:27] LABS: BACTERIA URINE 2+
[2023-03-26] MEDS ORDERED: CLONIDINE 0.1MG TABLET PO ONE (17:30)
[2023-03-26] MEDS ORDERED: OXYCODONE HCL/ACETAMINOPHEN 5/325MG TABLET PO ONE (19:00)
[2023-03-26] MEDS ORDERED: OXYC-100 MT (21:37)
[2023-03-26] MEDS ORDERED: IBUP-1523 MT (21:37)
[2023-03-26 22:59] VITALS: BP 156/98; PULSE 91; RESP 15; TEMP 97.9
== END 2023-03-26 23:39 | disposition home or self-care (01) ==
LOC: ER 13:17
DX: M25.551 Pain in right hip (principal); E11.9 Type 2 diabetes mellitus without complications; E78.00 Pure hypercholesterolemia, unspecified; I10 Essential (primary) hypertension
CPT/HCPCS: 36415; 72192; 73522; 73552; 80053; 81003; 85025; 99285